=== PATIENT | male | born 1960 | race Caucasian/White ===

== ENCOUNTER 2018-02-18 11:51 | Emergency (ER) | payer BC ==
[~2018-02-18] VITALS: Ht 177.8 cm; Wt 86.8 kg
[~2018-02-18 11:51] MED LIST: DOXY100C2 PO; GLUCTAB7 PO; LISI-461 PO
[2018-02-18 12:02] VITALS: TEMP 36.6; Ht 177.8 cm; Wt 86.8 kg
--- NOTE | 2018-02-18 12:33 | EMERGENCY ROOM VISIT NOTE ---
ED Visit Note First contact with patient: 12:08 CHIEF COMPLAINT: High blood pressure HISTORY OF PRESENTING ILLNESS: This is a 57-year-old male who presents to the emergency department with complaint of his blood pressure being high for the past few days. Patient states that three nights ago he felt a little bit dizzy which he describes as his vision being blurry, but did not feel like the room was spinning and did not feel off balance or lightheaded. He states that the next day he developed a small nosebleed which was easily controlled. He states that his allergies have been really bad the past week or 2 and he attributes these symptoms to his allergies, but his friend told him he should check his blood pressure, so he went to an outpatient pharmacy and checked his blood pressure, states it was 158/89. States he checked it again yesterday and it was still in the 150s/90s. Yesterday he states that he felt like he pulled a muscle in his left upper back yesterday while taking a shower, the pain is worse with movement and certain positions, has been constant, and he rates as 1/ 10, states "it's barely there." He has not taken any medications for the pain. He states he has had pain in his back like this before, but it has never been constant. He denies any associated chest pain, shortness of breath, palpitations, syncope, nausea or vomiting, or diaphoresis. Patient states that he went to an urgent care this morning to have his blood pressure checked and it was 155/98, and he was referred to the ED for further evaluation. Patient denies any other symptoms of headache, vision changes, neck pain or stiffness, back pain, abdominal pain, diarrhea, urinary symptoms, or unusual rash. REVIEW OF SYSTEMS: A complete 10 point review of systems was reviewed with the patient with pertinent positives and negatives as per history of present illness. All else were negative. PAST MEDICAL HISTORY: Reviewed in chart, see problem list below. SOCIAL HISTORY: Lives at home. Denies tobacco use. ALLERGIES: No known allergies. PHYSICAL EXAM: CONSTITUTIONAL: Pleasant and cooperative. No acute distress. Well appearing and well nourished. HEENT: Normocephalic, atraumatic. Pupils equal, round and reactive to light, EOMI. TMs normal. Pharynx normal. NECK: Supple, full active range of motion without discomfort. No cervical adenopathy. RESPIRATORY: Clear to auscultation bilaterally with no wheezing, crackles, rhonchi or stridor. Equal expansion bilaterally. CARDIOVASCULAR: Regular rate and rhythm with no murmurs, rubs or gallops. Normal peripheral perfusion. No edema. GASTROINTESTINAL: Soft, nontender, nondistended. No palpable masses or HSM. Bowel sounds present in all quadrants. MUSCULOSKELETAL: Tender to palpation in the left upper back just below the shoulder blade, reproduces complaint. No midline thoracic or lumbar spine tenderness. Full range of motion of all joints without discomfort. INTEGUMENTARY: No rash or other significant dermatologic conditions noted. NEUROLOGIC: Alert and oriented X 4 with normal affect. Cranial nerves II-XII grossly intact, no facial droop. No pronator drift. No focal neurologic deficits noted. 5/5 strength in all 4 extremities. Sensation intact to light touch in all 4 extremities. Normal speech. Normal gait observed. Negative Romberg. [id number] testing normal. ED COURSE AND MEDICAL DECISION MAKING: CC: Patient presenting with complaint of high blood pressure DIFFERENTIAL DIAGNOSIS: Includes, but not limited to uncontrolled hypertension , acute coronary syndrome, pulmonary embolism, aortic dissection, pneumothorax, pericarditis, myocarditis, musculoskeletal pain, costochondritis, pneumonia, among others. INTERPRETATION OF LABS: No leukocytosis, no anemia, no significant electrolyte abnormality, normal renal function, normal liver enzymes and lipase. Normal TSH. Negative troponin. UA negative for infection and no proteinuria. IMAGING: A 2 view chest x-ray was reviewed by myself and read by radiologist and shows no acute abnormalities by my interpretation. EKG: Shows normal sinus rhythm with a rate of 62 bpm, no acute ischemic changes and no significant changes when compared to previous EKG from 11/15/2013 by my interpretation. MEDICATION RECONCILIATION: I attest that I have personally reviewed the patient 's current medication list. INITIAL VITAL SIGNS REVIEW: I reviewed the patient's initial vital signs and interpret them as follows: T: Afebrile; BP: Hypertensive; HR: Within normal limits; RR: Within normal limits; Pulse Ox: Within normal limits on room air. Blood pressure screening: The patient was found to have an elevated blood pressure and was referred to their primary doctor for recheck and further treatment. SUMMARY: Patient was evaluated at bedside, history and physical exam performed. Patient is alert and oriented, no acute distress, resting calmly in stretcher. Patient has mild tenderness in the left upper back that is reproducible with palpation. He has no other complaints. Neurologic exam is intact with no focal deficits. Patient is noted to be mildly hypertensive. EKG reviewed at bedside, no acute ischemic changes. Orders were placed at bedside for labs, UA, chest x-ray to evaluate for hypertension. Patient discussed with Dr. Maki, who agrees with my assessment and plan. Labs and imaging reviewed as above, unremarkable. Negative troponin. Patient reassessed multiple times throughout ED stay, his blood pressure has been stable. I believe the left upper back pain is most likely a muscular cause. He continues to deny any other complaints. I discussed with the patient that he could increase his lisinopril from 5 mg to 10 mg daily until he can follow-up with his PCP, he agrees to do this. Patient was updated on all results and plan for discharge, he was encouraged to follow closely with his PCP. Patient was also given strict return precautions should his symptoms worsen, he verbalized understanding. Patient was discharged home in stable condition and ambulatory. Problem List Medical Problems: (1) Hypertension Status: Chronic (2) Kidney stone Status: Chronic Current/Historical Medications Scheduled Lisinopril (Zestril), 5 MG PO DAILY Allergies Coded Allergies: No Known Allergies (Unverified , 02/18/18) Vital Signs Date Time Temp Pulse Resp B/P (MAP) Pulse Ox O2 Delivery O2 Flow Rate FiO2 02/18/18 15:15 57 16 143/93 99 Room Air 02/18/18 14:06 59 16 133/75 97 Room Air 02/18/18 12:45 82 16 145/94 97 Room Air 02/18/18 12:44 97 Room Air 02/18/18 12:42 97 02/18/18 12:02 36.6 72 20 139/90 98 Room Air Laboratory Results 02/18/18 12:31 Red Blood Count 5.52, Mean Corpuscular Volume 86.2, Mean Corpuscular Hemoglobin 31.3, Mean Corpuscular Hemoglobin Concent 36.3, Mean Platelet Volume 9.9, Neutrophils (%) (Auto) 65.4, Lymphocytes (%) (Auto) 24.3, Monocytes (%) (Auto) 7.9, Eosinophils (%) (Auto) 1.9, Basophils (%) (Auto) 0.2, Neutrophils # (Auto) 5.88, Lymphocytes # (Auto) 2.19, Monocytes # (Auto) 0.71, Eosinophils # (Auto) 0.17, Basophils # (Auto) 0.02 02/18/18 12:31 Test 02/18/18 12:31 02/18/18 12:35 White Blood Count 9.00 K/uL (4.8-10.8) Red Blood Count 5.52 M/uL (4.7-6.1) Hemoglobin 17.3 g/dL (14.0-18.0) Hematocrit 47.6 % (42-52) Mean Corpuscular Volume 86.2 fL (80-100) Mean Corpuscular Hemoglobin 31.3 pg (25-34) Mean Corpuscular Hemoglobin Concent 36.3 g/dl (32-36) Platelet Count 233 K/uL (130-400) Mean Platelet Volume 9.9 fL (7.4-10.4) Neutrophils (%) (Auto) 65.4 % Lymphocytes (%) (Auto) 24.3 % Monocytes (%) (Auto) 7.9 % Eosinophils (%) (Auto) 1.9 % Basophils (%) (Auto) 0.2 % Neutrophils # (Auto) 5.88 K/uL (1.4-6.5) Lymphocytes # (Auto) 2.19 K/uL (1.2-3.4) Monocytes # (Auto) 0.71 K/uL (0.11-0.59) Eosinophils # (Auto) 0.17 K/uL (0-0.5) Basophils # (Auto) 0.02 K/uL (0-0.2) RDW Standard Deviation 40.2 fL (36.4-46.3) RDW Coefficient of Variation 12.6 % (11.5-14.5) Immature Granulocyte % (Auto) 0.3 % Immature Granulocyte # (Auto) 0.03 K/uL (0.00-0.02) Anion Gap 4.0 mmol/L (3-11) Est Creatinine Clear Calc Drug Dose 75.6 ml/min Estimated GFR () 83.4 Estimated GFR (Non- 72.0 BUN/Creatinine Ratio 15.6 (10-20) Calcium Level 8.9 mg/dl (8.5-10.1) Total Bilirubin 0.6 mg/dl (0.2-1) Direct Bilirubin 0.1 mg/dl (0-0.2) Aspartate Amino Transf (AST/SGOT) 26 U/L (15-37) Alanine Aminotransferase (ALT/SGPT) 36 U/L (12-78) Alkaline Phosphatase 81 U/L (45-117) Troponin I < 0.015 ng/ml (0-0.045) Total Protein 7.7 gm/dl (6.4-8.2) Albumin 4.1 gm/dl (3.4-5.0) Lipase 199 U/L (73-393) Thyroid Stimulating Hormone (TSH) 1.780 uIu/ml (0.300-4.500) Urine Color YELLOW Urine Appearance CLEAR (CLEAR) Urine pH 8.0 (4.5-7.5) Urine Specific [place] 1.017 (1.000-1.030) Urine Protein NEG (NEG) Urine Glucose (UA) NEG (NEG) Urine Ketones NEG (NEG) Urine Occult Blood NEG (NEG) Urine Nitrite NEG (NEG) Urine Bilirubin NEG (NEG) Urine Urobilinogen NEG (NEG) Urine Leukocyte Esterase NEG (NEG) Departure Information Impression Primary Impression: Hypertension Dispostion Home / Self-Care Condition GOOD Referrals No Doctor, Assigned (PCP) Patient Instructions ED HTN Established, [facility] Additional Instructions You have been evaluated and treated in the emergency department today for your hypertension. You should follow closely with your primary care provider to have your blood pressure rechecked in the next week. You should increase your lisinopril to 10 mg once a day until you are seen by your primary care provider for reevaluation. Please return to the emergency department for any worsening symptoms including chest pain, shortness of breath, severe headaches, vision changes, persistent vomiting, severe dizziness or passing out, or any other concerns. Problem Qualifiers Primary Impression: Hypertension Hypertension type: essential hypertension Qualified Codes: I10 - Essential ( primary) hypertension
[2018-02-18 12:42] LABS: BASO % 0.2 %; BASO ABS # 0.02 K/uL (0-0.2); EOS % 1.9 %; EOS ABS # 0.17 K/uL (0-0.5); HEMATOCRIT 47.6 % (42-52); HEMOGLOBIN 17.3 g/dL (14.0-18.0); IG# 0.03 K/uL (0.00-0.02); LYMPH % 24.3 %; LYMPH ABS # 2.19 K/uL (1.2-3.4); MEAN CELL VOLUME 86.2 fL (80-100); MEAN CORPUSCULAR HEMOGLOBIN 31.3 pg (25-34); MEAN CORPUSCULAR HGB CONC 36.3 g/dl (32-36); MEAN PLATELET VOLUME 9.9 fL (7.4-10.4); MONO % 7.9 %; MONO ABS # 0.71 K/uL (0.11-0.59); NEUT % 65.4 %; NEUT ABS # 5.88 K/uL (1.4-6.5); PLATELET COUNT 233 K/uL (130-400); RED CELL DISTRIBUTION WIDTH CV 12.6 % (11.5-14.5); RED CELL DISTRIBUTION WIDTH SD 40.2 fL (36.4-46.3)
[2018-02-18] MEDS ORDERED: LISI-729 PO (12:43)
[2018-02-18 12:44] VITALS: O2SAT 97
[2018-02-18 13:04] LABS: ALBUMIN 4.1 gm/dl (3.4-5.0); ALT/SGPT 36 U/L (12-78); AST/SGOT 26 U/L (15-37); BLOOD UREA NITROGEN 18 mg/dl (7-18); CALCIUM 8.9 mg/dl (8.5-10.1); CARBON DIOXIDE 32 mmol/L (21-32); CREATININE 1.14 mg/dl (0.60-1.40); GLUCOSE 84 mg/dl (70-99); LIPASE 199 U/L (73-393); SODIUM 141 mmol/L (136-145)
[2018-02-18 13:15] LABS: ALKALINE PHOSPHATASE 81 U/L (45-117); TOTAL PROTEIN 7.7 gm/dl (6.4-8.2)
--- NOTE | 2018-02-18 13:58 | DIAGNOSTIC IMAGING REPORT ---
CHEST 2 VIEWS ROUTINE HISTORY: high blood pressure, left chest pain COMPARISON: Chest 11/25/2013. FINDINGS: The lungs are clear. Cardiac silhouette is normal in size. No pleural effusions. No pneumothorax. IMPRESSION: No acute process. Electronically signed by: Dante Martel M.D. 02/18/2018 1:56 PM Dictated Date/Time: 02/18/2018 1:55 PM
[2018-02-18 15:15] VITALS: BP 143/93; PULSE 57; O2SAT 99
== END 2018-02-18 15:29 | disposition home or self-care (01) ==
LOC: C.EDB 11:52
DX: I10 Essential (primary) hypertension (principal); Z79.899 Other long term (current) drug therapy